=== PATIENT | female | born 1935 | race Caucasian/White ===

== ENCOUNTER → 2016-08-11 | Day surgery (SDC) | payer MEDICARE, BC ==
[~2016-08-11] MED LIST: ALPRAZolam 0.25 MG TAB PO PRN; ASPIRIN 325 MG TAB PO ONE; ASPIRIN 81 MG CHEW PO SCH; CARVEDILOL 12.5 MG TAB PO SCH; CETIRIZINE HCL 10 MG PO SCH; CRANBERRY PO SCH; DONEPEZIL 5 MG TAB PO SCH; FERROUS SULFATE 325 MG TAB PO SCH; FUROSEMIDE 20 MG TAB PO SCH; IOHEXOL 350 MG/ML 125ML BOTTLE INJ ONE; LIDOCAINE 2% INJ 20 MG/ML (20 ML MDV) ONE; LIDOCAINE 2% INJ 20 MG/ML SQ ONE; MAGNESIUM OXIDE PO SCH; MIDAZOLAM 2 MG/2 ML VIAL IV ONE; MIDAZOLAM 2 MG/2 ML VIAL ONE; MULTIVITAMINS, THERA 1 EACH TAB PO SCH; NITROGLYCERIN SL TABS 0.4 MG TAB SUBLINGUAL PRN; NON-FORMULARY DRUG (Alendronate Sodium [Fosamax] 70 MG) PO SCH; NON-FORMULARY DRUG (Calcium Carbonate [Calcium] 600 MG) PO SCH; NON-FORMULARY DRUG (Enalapril 20 MG) PO SCH; RX INFO: IV CONTRAST WAS GIVEN 1 EACH MISC MISCELLANE PRN; SODIUM CHLORIDE 0.9% 1,000 ML IV SCH; SODIUM CHLORIDE 0.9% 1,000 ML in EMPTY BAG 1 BAG IV ONE; amLODIPine 5 MG TAB PO SCH; fentaNYL (PF) 50 MCG/ML 2 ML AMP IV ONE; fentaNYL (PF) 50 MCG/ML 2 ML AMP ONE
[2016-08-11 11:33] VITALS: RESP 18
[2016-08-11 12:03] LABS: Basophils % (A) 1 %; CH 32.5; CHCM 32.1; Eosinophils # (A) 0.2 k/uL (0-0.7); Eosinophils % (A) 3 %; HCT 40.9 % (34.0-46.0); HDW 2.24; HGB 12.9 gm/dL (11.4-16.0); Luc # (Auto) 0.16; Luc % (Auto) 3; Lymphocytes # (A) 1.3 k/uL (1.0-4.8); Lymphocytes % (A) 23 %; MCH 32.2 pg (25.0-35.0); MCHC 31.6 g/dL (31.0-37.0); MCV 101.8 fL (80.0-100.0); Macrocytosis Slight; Mean Platelet Volume 7.5; Monocytes # (A) 0.3 k/uL (0-1.0); Monocytes % (A) 6 %; Neutrophils # (A) 3.6 k/uL (1.3-7.7); Neutrophils % (A) 65 %; RBC 4.01 m/uL (3.80-5.40); RDW 13.5 % (11.5-15.5); WBC 5.6 k/uL (3.8-10.6); WBC (Perox) 5.28
[2016-08-11 12:25] LABS: Anion Gap 12 mmol/L; Blood Urea Nitrogen 25 mg/dL (7-17); Calcium 9.3 mg/dL (8.4-10.2); Carbon Dioxide 23 mmol/L (22-30); Chloride 108 mmol/L (98-107); Glucose 94 mg/dL (74-99); Non-African American GFR(MDRD) 53 (>60 ml/min/1.73 sqM); Potassium 3.9 mmol/L (3.5-5.1); Sodium 143 mmol/L (137-145)
[2016-08-11 17:01] VITALS: BP 116/56; PULSE 68; TEMP 98.2
--- NOTE | 2016-08-12 05:08 | CC ---
DATE OF SERVICE: Mrs. Mccarthy is a 81-year-old female who was referred by Dr. Randall for further evaluation with cardiac catheterization. This patient has a history of cardiomyopathy and PVCs. Patient's recent echocardiogram shows some worsening of the LV systolic function and inferobasal hypokinesia. In view of that, the patient was advised further evaluation with cardiac catheterization to rule out any significant progression in the coronary artery disease. PROCEDURE: The right groin was prepped and draped in the usual manner and the skin was infiltrated with 2% Xylocaine. The right femoral artery was entered using Seldinger technique. A #6 Citizen [place] sheath was placed in. Selective coronary angiography was then performed in multiple projections and the left ventriculography was performed in 30-degree PATTON projection. Patient tolerated the procedure well. HEMODYNAMICS: Left ventricular end-diastolic pressure was 20 mmHg prior to angiography. No gradient was noted across the aortic valve. SELECTIVE CORONARY ANGIOGRAPHY: Left main coronary artery is normal and patent. LAD is a good caliber blood vessel and gives rise to a good-sized diagonal branch. LAD and its branches are normal. Circumflex coronary artery is a large caliber blood vessel, dominant in distribution and gives rise to good-sized obtuse marginal branch and it gives rise to a small-sized PDA and PLV branches. Circumflex coronary artery and its branches are normal. Right coronary artery is small and nondominant. Left ventriculography was performed in the 30-degree PATTON projection that reveals normal left ventricular silhouette with normal left ventricular systolic functions. There is a catheter-induced mitral regurgitation. FINAL IMPRESSION: This study reveals normal coronary arteries. Left ventricular systolic function is normal with ejection fraction of 50% to 55%. RECOMMENDATIONS: Continue medical treatment.
== END ==
LOC: CATHCVL 11:00
PROVIDERS: ATTEND Internal Medicine Cardiovascular Disease
DX: I42.0 Dilated cardiomyopathy (principal); E78.5 Hyperlipidemia, unspecified; I10 Essential (primary) hypertension; Z88.2 Allergy status to sulfonamides; I65.23 Occlusion and stenosis of bilateral carotid arteries; Z79.82 Long term (current) use of aspirin; Z79.899 Other long term (current) drug therapy
CPT/HCPCS: 93458; 80048; 85025; C1760; C1894; C1769; J2001; J2250; J3010; Q9967

== ENCOUNTER → 2016-08-16 | Outpatient (CLI) | payer MEDICARE, BC ==
--- NOTE | 2016-08-16 11:14 | USB ---
Reason for exam: additional evaluation requested from abnormal screening. History: Patient is postmenopausal. Took estrogen for 4 years beginning at age 58. Physical Findings: Nurse did not find any significant physical abnormalities on exam. US Breast LT Left breast ultrasound includes all four quadrants, the retroareolar region and axilla. Finding demonstrate no cystic or solid lesion seen. These results were verbally communicated with the patient and result sheet given to the patient on 08/16/16. ASSESSMENT: Negative, BI-RAD 1 RECOMMENDATION: Routine screening mammogram of both breasts in 3 months. Back on schedule.
== END | disposition home or self-care (01) ==
LOC: RADUSWWP 08:50
PROVIDERS: ATTEND Internal Medicine
DX: R92.8 Other abnormal and inconclusive findings on diagnostic imaging of breast (principal)

== ENCOUNTER → 2017-08-24 | Outpatient (CLI) | payer MEDICARE, BC ==
--- NOTE | 2017-08-24 13:17 | BD ---
EXAMINATION TYPE: Axial Bone Density DATE OF EXAM: 08/24/2017 COMPARISON: 11/05/2013 CLINICAL HISTORY: Osteoporosis screening. Postmenopausal female. Height: 62 IN Weight: 147 LBS FRAX RISK QUESTIONS: History of Fracture in Adulthood: LT RIBS AGE 62 RISK FACTORS HISTORY OF: Active: YES Diet low in dairy products/other sources of calcium: YES Postmenopausal woman: AGE 53 Take estrogen and/or progesterone medications: NOT NOW How long: ESTROGEN AGE 56-60 MEDICATIONS: Osteoporosis Medications: NO Which medication: Fosamax How Lon YEARS. STOPPED LAST MONTH PT HAS A DENTAL PROCEDURE Additional Medications: VIT D , CALCIUM, FUROSEMIDE, DONEPEZIE, ENALAPRIL, CARVEDILOL, SIMVASTATIN, A SPIRIN, CRANBERRY 8400, MULTI VIT EXAM MEASUREMENTS: Bone mineral densitometry was performed using the [employer]zer[employer] System. Bone mineral density as measured about the Lumbar spine is: ----- L1-L4(G/cm2): 1.216 T Score Values are as follows: ----- L2: 0.2 ----- L3: 2.0 ----- L4: 0.0 ----- L1-L4: 0.3 Bone mineral density has: Increased 6.9% since study of: 11/05/2013 Bone mineral density about the R hip (g/cm2): 0.840 Bone mineral density about the L hip (g/cm2): 0.697 T Score values are as follows: -----R Neck: -1.4 -----L Neck: -2.5 -----R Total: -1.6 -----L Total: -1.5 Bone mineral density has: Decreased -0.4% since study of: 11/05/2013 IMPRESSION: Osteopenia (T Score between -2.5 and -1). Values approach osteoporosis with regards to the left femur . There is slightly increased risk of fracture and the patient may be considered for treatment. Re-Screen 2-5 years. NOTE: T-SCORE=SD OF THE YOUNG ADULT MEAN.
--- NOTE | 2017-08-26 10:27 | MM ---
Reason for exam: screening (asymptomatic). Last mammogram was performed 1 year and 9 months ago. History: Patient is postmenopausal. Took estrogen for 4 years beginning at age 58. Physical Findings: A clinical breast exam by your physician is recommended on an annual basis and results should be correlated with mammographic findings. MG 3D Screening Mammo W/Cad Bilateral CC and MLO view(s) were taken. Prior study comparison: November 14, 2015, left breast MG 3d work up w/cad LT. November 10, 2015, bilateral MG 3d screening mammo w/cad. The breast tissue is heterogeneously dense. This may lower the sensitivity of mammography. Benign appearing bilateral calcifications. No suspicious abnormality. No significant changes when compared with prior studies. ASSESSMENT: Benign, BI-RAD 2 RECOMMENDATION: Routine screening mammogram of both breasts in 1 year.
== END | disposition home or self-care (01) ==
LOC: RADMAMWWP 11:25
PROVIDERS: ATTEND Internal Medicine
DX: Z12.31 Encounter for screening mammogram for malignant neoplasm of breast (principal); M89.9 Disorder of bone, unspecified; M85.80 Other specified disorders of bone density and structure, unspecified site
CPT/HCPCS: 77063; 77067; 77080

== ENCOUNTER → 2018-08-28 | Outpatient (CLI) | payer MEDICARE, BC ==
--- NOTE | 2018-08-28 13:56 | MM ---
Reason for exam: screening (asymptomatic). Last mammogram was performed 1 year ago. History: Patient is postmenopausal. Took estrogen for 4 years beginning at age 58. Physical Findings: A clinical breast exam by your physician is recommended on an annual basis and results should be correlated with mammographic findings. MG 3D Screening Mammo W/Cad Bilateral CC and MLO view(s) were taken. Prior study comparison: August 24, 2017, bilateral MG 3d screening mammo w/cad. November 14, 2015, left breast MG 3d work up w/cad LT. The breast tissue is heterogeneously dense. This may lower the sensitivity of mammography. There are benign appearing round vascular calcifications bilaterally. There is no discrete abnormality. ASSESSMENT: Benign, BI-RAD 2 RECOMMENDATION: Routine screening mammogram of both breasts in 1 year.
== END | disposition home or self-care (01) ==
LOC: RADMAMWWP 10:44
PROVIDERS: ATTEND Internal Medicine
DX: Z12.31 Encounter for screening mammogram for malignant neoplasm of breast (principal)
CPT/HCPCS: 77063; 77067

== ENCOUNTER → 2019-08-17 | Outpatient (CLI) | payer MEDICARE, BC ==
--- NOTE | 2019-08-17 18:31 | XR ---
EXAMINATION TYPE: XR chest 2V DATE OF EXAM: 08/17/2019 COMPARISON: None INDICATION: Cough short of breath TECHNIQUE: Frontal and lateral views of the chest are obtained. FINDINGS: The heart size is enlarged. The pulmonary vasculature is upper limits of normal. Mild infiltrate is at the left base.. IMPRESSION: 1. Mild infiltrate left base, likely atelectasis. 2. Cardiomegaly
== END | disposition home or self-care (01) ==
LOC: RADXRMAIN 17:15
PROVIDERS: ATTEND Internal Medicine Clinical Cardiac Electrophysiology
DX: I51.7 Cardiomegaly (principal); I42.0 Dilated cardiomyopathy; R06.02 Shortness of breath; R91.8 Other nonspecific abnormal finding of lung field
CPT/HCPCS: 71046

== ENCOUNTER → 2019-11-02 | Outpatient (CLI) | payer MEDICARE, BC ==
--- NOTE | 2019-11-05 10:18 | MM ---
Reason for exam: screening (asymptomatic). Last mammogram was performed 1 year and 2 months ago. History: Patient is postmenopausal. Took estrogen for 4 years beginning at age 58. Physical Findings: A clinical breast exam by your physician is recommended on an annual basis and results should be correlated with mammographic findings. MG 3D Screening Mammo W/Cad Bilateral CC and MLO view(s) were taken. Prior study comparison: August 28, 2018, bilateral MG 3d screening mammo w/cad. August 24, 2017, bilateral MG 3d screening mammo w/cad. The breast tissue is heterogeneously dense. This may lower the sensitivity of mammography. No significant changes when compared with prior studies. ASSESSMENT: Benign, BI-RAD 2 RECOMMENDATION: Routine screening mammogram of both breasts in 1 year.
== END | disposition home or self-care (01) ==
LOC: RADMAMWWP 10:53
PROVIDERS: ATTEND Internal Medicine
DX: Z12.31 Encounter for screening mammogram for malignant neoplasm of breast (principal)
CPT/HCPCS: 77063; 77067

== ENCOUNTER 2020-09-26 10:03 | Day surgery (SDC) | payer MEDICARE ==
[2020-09-25 09:29] VITALS: BMI 26.5
[~2020-09-26 10:03] MED LIST changes: +ALPRAZolam 0.5 MG TAB PO PRN; -ASPIRIN 325 MG TAB PO ONE; +ASPIRIN 325 MG TAB PO STA; -ASPIRIN 81 MG CHEW PO SCH; +ATORVASTATIN 80 MG TAB PO STA; -CARVEDILOL 12.5 MG TAB PO SCH; -CETIRIZINE HCL 10 MG PO SCH; -CRANBERRY PO SCH; -DONEPEZIL 5 MG TAB PO SCH; -FERROUS SULFATE 325 MG TAB PO SCH; -FUROSEMIDE 20 MG TAB PO SCH; -IOHEXOL 350 MG/ML 125ML BOTTLE INJ ONE; -LIDOCAINE 2% INJ 20 MG/ML (20 ML MDV) ONE; -LIDOCAINE 2% INJ 20 MG/ML SQ ONE; -MAGNESIUM OXIDE PO SCH; -MIDAZOLAM 2 MG/2 ML VIAL IV ONE; -MIDAZOLAM 2 MG/2 ML VIAL ONE; -MULTIVITAMINS, THERA 1 EACH TAB PO SCH; -NON-FORMULARY DRUG (Alendronate Sodium [Fosamax] 70 MG) PO SCH; -NON-FORMULARY DRUG (Calcium Carbonate [Calcium] 600 MG) PO SCH; -NON-FORMULARY DRUG (Enalapril 20 MG) PO SCH; -RX INFO: IV CONTRAST WAS GIVEN 1 EACH MISC MISCELLANE PRN; -SODIUM CHLORIDE 0.9% 1,000 ML IV SCH; -amLODIPine 5 MG TAB PO SCH; -fentaNYL (PF) 50 MCG/ML 2 ML AMP IV ONE; -fentaNYL (PF) 50 MCG/ML 2 ML AMP ONE
[2020-09-26] MEDS ORDERED: SODIUM CHLORIDE 0.9% 1,000 ML IV ONE (10:39)
[2020-09-26 10:47] VITALS: RESP 16; TEMP 97.5
[2020-09-26] MEDS ORDERED: fentaNYL (PF) 50 MCG/ML 2 ML AMP IV ONE (11:55)
[2020-09-26] MEDS ORDERED: MIDAZOLAM 2 MG/2 ML VIAL IV ONE (11:55)
[2020-09-26] MEDS ORDERED: LIDOCAINE 1% INJ 10MG/ML (20 ML MDV) SQ ONE (11:58)
[2020-09-26] MEDS ORDERED: VERAPAMIL SYRINGE (5 MG/10 ML) INTRAARTER ONE (12:03)
[2020-09-26] MEDS ORDERED: IOPAMIDOL-370 125ML BTL INJ ONE (12:16)
[2020-09-26] MEDS ORDERED: RX INFO: IV CONTRAST WAS GIVEN 1 EACH MISC MISCELLANE PRN (12:33)
--- NOTE | 2020-09-26 12:33 | P.CARDCATH ---
Description of Procedure: PROCEDURES PERFORMED: Left heart catheterization, bilateral coronary angiography, left ventriculogram INDICATION: Cardiomyopathy, moderate to severe mitral regurgitation HISTORY: Patient is a pleasant 85 year old female with history of cardiomyopathy which has recently been worsened with EF 20% by last echo with additional moderate to severe mitral regurgitation which has been monitored. Due to worsened cardiomyopathy and moderate to severe MR, left heart cath was recommended. CONSENT:I have discussed the risks, benefits and alternative therapies for the above-mentioned procedure and for both sedation/analgesia as well as necessary blood product administration, if indicated, as they pertain to this patient. The patient has indicated understanding and acceptance of the risks and procedures discussed. PROCEDURE: After the risks, benefits and alternatives of the above mentioned procedure explained in detail with the patient, informed consent was obtained. Patient was taken to the catheterization lab and prepped and draped in usual fashion. 1% lidocaine was used to anesthetize the right radial artery. A 6- [place] sheath was placed in the right radial artery using modified Seldinger technique. Left coronary angiography was performed with a 5-[place] JL 3.5 catheter and right coronary angiography was performed with a 6-[place] AR2 catheter subselectively. A 5-[place] pigtail catheter was inserted into the left ventricle and pressure measurements were obtained. Left ventriculography was performed in the PATTON projection with a power injection. The right radial sheath was removed and a TR band was placed with hemostasis achieved. The patient tolerated the procedure well. Patient was transported back to the post catheterization holding area in stable condition. Conscious Sedation: Patient was monitored under the direct supervision of vision of myself for conscious sedation using Versed and fentanyl for a total duration of 22 minutes HEMODYNAMICS: Ao: 126/67 LV: 124/2, LVEDP 12mmHg SELECTIVE CORONARY ARTERIOGRAPHY: LEFT MAIN: The left main is a large caliber vessel which bifurcates into the LAD and circumflex. There is no significant stenosis. LEFT ANTERIOR DESCENDING CORONARY ARTERY: LAD is a large caliber vessel which wraps around to the apex. There is no significant stenosis. LEFT CIRCUMFLEX CORONARY ARTERY: Left circumflex is a moderate caliber vessel without significant stenosis. It gives off the PDA and is the dominant vessel. RIGHT CORONARY ARTERY: The right coronary artery is a small nondominant artery which gives off an RV branch and has no significant stenosis. LEFT VENTRICULOGRAPHY: Left ventricular ejection fraction is 20% with global hypokinesis. There is 2+ mitral regurgitation and no significant gradient with pullback across the aortic valve. FINAL IMPRESSION: 1. Normal coronary arteries as described above. 2. Nonischemic cardiomyopathy with EF 20% 3. 2+ MR 4. Normal left sided filling pressures PLAN: 1. Aggressive risk factor modification per most recent ACC/AHA guidelines. 2. Follow-up in the office in 1-2 weeks.
[2020-09-26] MEDS ORDERED: SODIUM CHLORIDE 0.9% 1,000 ML IV SCH ×2 (12:45)
[2020-09-26 15:20] VITALS: BP 126/68
[2020-09-26 15:21] VITALS: PULSE 64
== END 2020-09-26 16:07 | disposition home or self-care (01) ==
LOC: CATHCVL 10:03
PROVIDERS: ATTEND Internal Medicine
DX: I42.8 Other cardiomyopathies (principal); I34.0 Nonrheumatic mitral (valve) insufficiency; I11.0 Hypertensive heart disease with heart failure; I50.9 Heart failure, unspecified; E78.5 Hyperlipidemia, unspecified; I49.3 Ventricular premature depolarization; I35.1 Nonrheumatic aortic (valve) insufficiency; I65.23 Occlusion and stenosis of bilateral carotid arteries; Z88.1 Allergy status to other antibiotic agents; Z88.2 Allergy status to sulfonamides; Z79.899 Other long term (current) drug therapy; Z79.82 Long term (current) use of aspirin
CPT/HCPCS: 93458; C1894; C1769; J2250; J2001; J3010; J1644; Q9967

== ENCOUNTER 2021-01-21 09:57 | Emergency (ER) | payer MEDICARE ==
[2021-01-21 10:04] VITALS: TEMP 97.8
--- NOTE | 2021-01-21 10:43 | ED ---
General Adult HPI - General Chief complaint: Shortness of Breath Stated complaint: SOB Time Seen by Provider: 01/21/21 10:07 Source: patient, family Mode of arrival: wheelchair Limitations: no limitations - History of Present Illness Initial comments: Dictation was produced using [employer] dictation software. please excuse any grammatical, word or spelling errors. Chief Complaint: 85-year-old female presents to the emergency department for shortness of breath History of Present Illness: Patient is an 85-year-old female she presents to emergency R for shortness of breath. Patient reports that she has history of heart failure. She does see a flaker tender for this. Patient used to be on Lasix however was taken off by her flaker tender. Patient states patient of breath for the last 2 days. No chest pain. No leg swelling. No abdominal pain. No nausea vomiting. Denies any coughing or runny nose. No obvious exposure to anybody with coronavirus or URI symptoms. The ROS documented in this emergency department record has been reviewed and confirmed by me. Those systems with pertinent positive or negative responses have been documented in the HPI. All other systems are other negative and/or noncontributory. PHYSICAL EXAM: General Impression: Alert and oriented x3, not in acute distress HEENT: Normocephalic atraumatic, extra-ocular movements intact, pupils equal and reactive to light bilaterally, mucous membranes moist. Cardiovascular: Heart regular rate and rhythm Chest: Able to complete full sentences, no retractions, no tachypnea, diffuse lung crackles Abdomen: abdomen soft, non-tender, non-distended, no organomegaly Musculoskeletal: Pulses present and equal in all extremities, no peripheral edema Motor: no focal deficits noted Neurological: CN II-XII grossly intact, no focal motor or sensory deficits noted Skin: Intact with no visualized rashes Psych: Normal affect and mood ED course: 85-year-old female past medical history of heart failure presents with shortness of breath. Eyes upon arrival are within acceptable limits. Patient's well-appearing at bedside not showing signs of respiratory distress patient does have auscultatory findings suggestive of heart failure. Does not have any pitting edema. Laboratory evaluation obtained. CBC, coag panel, metabolic panel is unremarkable. Brain natruretic peptide is 6830. Coronavirus negative. Chest x-ray shows evidence of failure. Patient reevaluated at the bedside at 12:15 PM found to be in stable medical condition. Disposition options were discussed. Patient's symptoms clinically consistent with heart failure exacerbation. Patie nt would prefer to be discharged. Patient given 40 mg of IV Lasix. She will be given 2 days worth of by mouth Lasix. She is advised follow-up with her primary care doctor or flaker tender. Return precautions discussed. EKG interpretation: Ventricular rate 84, normal sinus rhythm, WA interval 184, QRS 104, QTC 482. No WA prolongation, no QTC prolongation, no ST or T-wave changes noted. No old EKG for comparison Overall, this EKG is unremarkable - Related Data Home Medications Medication Instructions Recorded Confirmed Calcium Carbonate [Calcium] 600 mg PO DAILY 08/10/16 09/26/20 Cetirizine HCl 10 mg PO DAILY 08/10/16 09/26/20 Cranberry(Dose Unknown) 1 tab PO DAILY 08/10/16 09/26/20 Donepezil [Aricept] 5 mg PO QAM 08/10/16 09/26/20 Enalapril [Vasotec] 20 mg PO DAILY 08/10/16 09/26/20 Furosemide [Lasix] 20 mg PO DAILY 08/10/16 09/26/20 Multivitamins, Thera [Multivitamin 1 tab PO DAILY 08/10/16 09/26/20 (formulary)] Simvastatin [Zocor] 20 mg PO HS 08/10/16 09/26/20 carvediloL [Coreg] 12.5 mg PO BID 08/10/16 09/26/20 Aspirin [Children's Aspirin] 81 mg PO DAILY 08/11/16 09/26/20 Previous Rx's Medication Instructions Recorded Furosemide [Lasix] 20 mg PO DAILY 2 Days #2 tab 01/21/21 Allergies Allergy/AdvReac Type Severity Reaction Status Date / Time Sulfa (Sulfonamide Allergy Rash/Hives Verified 01/21/21 10:04 Antibiotics) Review of Systems ROS Statement: Those systems with pertinent positive or pertinent negative responses have been documented in the HPI. ROS Other: All systems not noted in ROS Statement are negative. Past Medical History Past Medical History: Heart Failure, Hyperlipidemia, Hypertension, Memory Impa irment Additional Past Medical History / Comment(s): hx CHF, seasonal allergies History of Any Multi-Drug Resistant Organisms: None Reported Past Surgical History: Cardiac Ablation, Heart Catheterization, Tonsillectomy, Tubal Ligation Additional Past Surgical History / Comment(s): partial thyroidectomy, yonas cataracts, surgery for glaucoma Past Anesthesia/Blood Transfusion Reactions: No Reported Reaction Past Psychological History: No Psychological Hx Reported Smoking Status: Never smoker Past Alcohol Use History: None Reported Past Drug Use History: None Reported - Past Family History Father Family Medical History: Cancer General Exam Limitations: no limitations Course Vital Signs 01/21/21 01/21/21 10:00 11:48 Temperature 97.8 F Pulse Rate 90 83 Respiratory 18 16 Rate Blood Pressure 120/80 127/68 O2 Sat by Pulse 98 96 Oximetry Medical Decision Making - Lab Data Result diagrams: 01/21/21 10:15 01/21/21 10:15 Lab Results 01/21/21 01/21/21 01/21/21 Range/Units 10:15 10:15 10:15 WBC 5.7 (3.8-10.6) k/uL RBC 3.66 L (3.80-5.40) m/uL Hgb 12.4 (11.4-16.0) gm/dL Hct 36.8 (34.0-46.0) % MCV 100.4 H (80.0-100.0) fL MCH 33.8 (25.0-35.0) pg MCHC 33.6 (31.0-37.0) g/dL RDW 13.5 (11.5-15.5) % Plt Count 218 (150-450) k/uL MPV 8.7 Neutrophils % 72 % Lymphocytes % 17 % Monocytes % 6 % Eosinophils % 2 % Basophils % 0 % Neutrophils # 4.1 (1.3-7.7) k/uL Lymphocytes # 1.0 (1.0-4.8) k/uL Monocytes # 0.3 (0-1.0) k/uL Eosinophils # 0.1 (0-0.7) k/uL Basophils # 0.0 (0-0.2) k/uL PT 10.9 (9.0-12.0) sec INR 1.0 (<1.2) APTT 24.1 (22.0-30.0) sec Sodium 140 (137-145) mmol/L Potassium 4.1 (3.5-5.1) mmol/L Chloride 110 H (98-107) mmol/L Carbon Dioxide 22 (22-30) mmol/L Anion Gap 8 mmol/L BUN 24 H (7-17) mg/dL Creatinine 0.82 (0.52-1.04) mg/dL Est GFR (CKD-EPI)AfAm 77 (>60 ml/min/1.73 sqM) Est GFR (CKD-EPI)NonAf 66 (>60 ml/min/1.73 sqM) Glucose 112 H (74-99) mg/dL Calcium 9.5 (8.4-10.2) mg/dL NT-Pro-B Natriuret Pep pg/mL Coronavirus (PCR) (Not Detectd) 01/21/21 01/21/21 Range/Units 10:15 10:15 WBC (3.8-10.6) k/uL RBC (3.80-5.40) m/uL Hgb (11.4-16.0) gm/dL Hct (34.0-46.0) % MCV (80.0-100.0) fL MCH (25.0-35.0) pg MCHC (31.0-37.0) g/dL RDW (11.5-15.5) % Plt Count (150-450) k/uL MPV Neutrophils % % Lymphocytes % % Monocytes % % Eosinophils % % Basophils % % Neutrophils # (1.3-7.7) k/uL Lymphocytes # (1.0-4.8) k/uL Monocytes # (0-1.0) k/uL Eosinophils # (0-0.7) k/uL Basophils # (0-0.2) k/uL PT (9.0-12.0) sec INR (<1.2) APTT (22.0-30.0) sec Sodium (137-145) mmol/L Potassium (3.5-5.1) mmol/L Chloride (98-107) mmol/L Carbon Dioxide (22-30) mmol/L Anion Gap mmol/L BUN (7-17) mg/dL Creatinine (0.52-1.04) mg/dL Est GFR (CKD-EPI)AfAm (>60 ml/min/1.73 sqM) Est GFR (CKD-EPI)NonAf (>60 ml/min/1.73 sqM) Glucose (74-99) mg/dL Calcium (8.4-10.2) mg/dL NT-Pro-B Natriuret Pep 6830 pg/mL Coronavirus (PCR) Not Detected (Not Detectd) Disposition Clinical Impression: Heart failure Disposition: HOME SELF-CARE Condition: Fair Instructions (If sedation given, give patient instructions): Heart Failure (ER) Additional Instructions: Take Lasix as instructed. Please follow-up with the flaker tender or primary care doctor. If you start to have worsening symptoms especially with associated chest pain please come to the emergency department for reevaluation. Prescriptions: Furosemide [Lasix] 20 mg PO DAILY 2 Days #2 tab Is patient prescribed a controlled substance at d/c from ED?: No Referrals: Melissa Garcia MD [Primary Care Provider] - 1-2 days
[2021-01-21 10:47] LABS: Basophils % (A) 0 %; Eosinophils # (A) 0.1 k/uL (0-0.7); Eosinophils % (A) 2 %; HCT 36.8 % (34.0-46.0); HGB 12.4 gm/dL (11.4-16.0); Lymphocytes % (A) 17 %; MCH 33.8 pg (25.0-35.0); MCHC 33.6 g/dL (31.0-37.0); MCV 100.4 fL (80.0-100.0); Mean Platelet Volume 8.7; Monocytes # (A) 0.3 k/uL (0-1.0); Monocytes % (A) 6 %; Neutrophils # (A) 4.1 k/uL (1.3-7.7); Neutrophils % (A) 72 %; Platelet Count 218 k/uL (150-450); RBC 3.66 m/uL (3.80-5.40); RDW 13.5 % (11.5-15.5); WBC 5.7 k/uL (3.8-10.6)
[2021-01-21 11:02] LABS: Calcium 9.5 mg/dL (8.4-10.2); Potassium 4.1 mmol/L (3.5-5.1)
[2021-01-21 11:05] LABS: Prothrombin Time 10.9 sec (9.0-12.0)
[2021-01-21 11:06] LABS: Partial Thromboplastin Time 24.1 sec (22.0-30.0)
--- NOTE | 2021-01-21 11:18 | XR ---
Symptoms. EXAMINATION TYPE: XR chest 1V portable DATE OF EXAM: 01/21/2021 Comparison: 08/17/2019 Clinical History: 85 year-old female shortness of breath, dyspnea Findings: Heart borderline enlarged. Diffuse interstitial density. Patchy bibasilar opacities. This small left and trace right pleural effusions. Right paratracheal soft tissue prominence and slight leftward jossy ation of the trachea remains unchanged. Age indeterminate minimally offset right lateral rib fracture deformities. Impression: 1. Right paratracheal soft tissue prominence with some leftward deviation of the trachea remains unch anged. Recommend thyroid ultrasound as an initial assessment for possible goiter. And thyroid ultraso und is negative, contrast-enhanced CT may be indicated after successful treatment of the patient's ac edelmira presentation. 2. Correlate for CHF with pulmonary vascular congestion. Small left and trace right pleural effusions with adjacent atelectasis and/or consolidation. 3. Age indeterminate minimally offset fractures of the right lateral ribs. Clinically correlate.
[2021-01-21] MEDS ORDERED: FUROSEMIDE 10 MG/ML 4 ML VIAL IV STA (12:04)
[2021-01-21 12:35] VITALS: BP 125/78; PULSE 80; RESP 18
== END 2021-01-21 12:34 | disposition home or self-care (01) ==
LOC: EC 09:57
DX: I11.0 Hypertensive heart disease with heart failure (principal); I50.9 Heart failure, unspecified; E78.5 Hyperlipidemia, unspecified; Z20.822 Contact with and (suspected) exposure to COVID-19; Z79.82 Long term (current) use of aspirin; Z88.2 Allergy status to sulfonamides; Z98.51 Tubal ligation status
CPT/HCPCS: 99285; 96374; 36415; 93005; 83880; 80048; 85025; 85610; 85730; 87635; 71045; J1940

== ENCOUNTER 2021-04-06 13:17 | Day surgery (SDC) | payer MEDICARE ==
[~2021-04-06 13:17] MED LIST changes: -ALPRAZolam 0.25 MG TAB PO PRN; -ALPRAZolam 0.5 MG TAB PO PRN; -ASPIRIN 325 MG TAB PO STA; -ATORVASTATIN 80 MG TAB PO STA; -NITROGLYCERIN SL TABS 0.4 MG TAB SUBLINGUAL PRN; +SODIUM CHLORIDE 0.9% 1,000 ML IV SCH; -SODIUM CHLORIDE 0.9% 1,000 ML in EMPTY BAG 1 BAG IV ONE
[2021-04-06 14:16] LABS: Basophils % (A) 1 %; Eosinophils # (A) 0.2 k/uL (0-0.7); Eosinophils % (A) 3 %; HCT 39.4 % (34.0-46.0); HGB 12.9 gm/dL (11.4-16.0); Lymphocytes # (A) 1.4 k/uL (1.0-4.8); Lymphocytes % (A) 20 %; MCH 32.9 pg (25.0-35.0); MCHC 32.8 g/dL (31.0-37.0); MCV 100.3 fL (80.0-100.0); Macrocytosis Slight; Monocytes # (A) 0.5 k/uL (0-1.0); Monocytes % (A) 7 %; Neutrophils # (A) 4.7 k/uL (1.3-7.7); Neutrophils % (A) 66 %; Platelet Count 243 k/uL (150-450); RBC 3.92 m/uL (3.80-5.40); RDW 14.1 % (11.5-15.5); WBC 7.2 k/uL (3.8-10.6)
[2021-04-06 14:36] LABS: Calcium 9.2 mg/dL (8.4-10.2); Potassium 4.1 mmol/L (3.5-5.1)
[2021-04-06] MEDS ORDERED: fentaNYL (PF) 50 MCG/ML 2 ML AMP ONE (16:33)
[2021-04-06] MEDS ORDERED: MIDAZOLAM 2 MG/2 ML VIAL ONE (16:33)
[2021-04-06] MEDS ORDERED: ceFAZolin 1 GM in SODIUM CHLORIDE 0.9% 250 ML IRRIGATION PRN (16:41)
[2021-04-06] MEDS ORDERED: IOPAMIDOL-370 50ML BTL INJ ONE (16:57)
[2021-04-06] MEDS ORDERED: LIDOCAINE 1% INJ 10MG/ML (20 ML MDV) ONE (17:10)
[2021-04-06] MEDS ORDERED: LIDOCAINE 1% INJ 10MG/ML (20 ML MDV) SQ ONE (17:20)
[2021-04-06] MEDS ORDERED: ACETAMINOPHEN IV (For NPO) 1,000 MG in EMPTY BAG 1 BAG IVPB ONE (18:42)
--- NOTE | 2021-04-06 19:06 | P.EPPROC ---
- EP Procedure Note Electrophysiology Procedure Note: Diagnosis Cardiomyopathy, chronic, nonischemic Bradycardia, on guideline directed Congestive heart failure, chronic class III Procedure: Successful Dual-chamber ICD implantation for management of risk of sudden cardiac , with bradycardia Result: Dual chamber ICD implantation, Medtronic EVERA MRI the S4 Atrial lead: Medtronic ICD lead, model #4574, 53 cm in length. Pacing threshold 0.75 V at 0.4 ms, pacing impedance 513 ohms, P waves 2 mV, screwed in right atrial appendage RV ICD lead: Medtronic model number 6935M, 62 cm in length, screwed in RV septum, R waves 16 mV, pacing impedance 475 ohms, pacing threshold 0.5 V at 0.4 ms High-voltage impedance 76 ohms Procedure details: Patient was brought to the EP lab in a fasting state. Written informed consent was obtained prior to the procedure. Options, pros and cons, benefits and risks and complications discussed with patient in detail prior to the procedure (shared decision making). Importance of continuing medical treatment emphasized. Alternatives discussed. Patient would like to proceed with dual-chamber ICD implant. Left upper extremity venogram performed. 15 mL IV dye injected in the left arm. Patent axillary/subclavian vein The left pectoral area was prepped and draped as a protocol. IV antibiotics administered 1% lidocaine was used for local anesthesia. A 4 cm incision was made parallel to the deltopectoral groove, about 1.5 cm medial to it. The incision was carried down to the level of the pectoralis muscle and the subfascial pocket was made. Hemostasis was assured. The axillary vein access was obtained. Appropriately sized into to see sheaths were placed. ICD lead implanted in the right ventricle and screwed in. ICD lead tested for threshold, sensing, impedances and tested with high output pacing for diaphragmatic stimulation Atrial lead placed in the right atrial appendage and tested for threshold, sensing, impedance, and tested with high output pacing. Phrenic nerve stimulation Lead secured to the underlying transverse muscle after removing sheaths . Pocket irrigated with antibiotic solution Leads connected to the biventricular ICD generator. Wound closed in 3 layers and dressed per protocol Dual ICD interrogated and programmed. Appropriate pacing parameters, antitachycardia therapies with antitachycardia pacing cardioversion defibrillations programmed. Patient tolerated the procedure well without any acute complications. See scanned device report in EMR for lead details
[2021-04-06 20:16] VITALS: RESP 16
[2021-04-06] MEDS ORDERED: ATORVASTATIN 10 MG TAB PO SCH (21:00)
[2021-04-06] MEDS: carvediloL 12.5 MG TAB PO SCH (21:20)
[2021-04-06] MEDS: SACUBITRIL/VALSARTAN 24 MG-26 MG TABLET PO SCH (21:21)
--- NOTE | 2021-04-06 21:34 | XR ---
EXAMINATION TYPE: XR chest 1V portable DATE OF EXAM: 04/06/2021 9:10 PM COMPARISON:Multiple radiographs, with the most recent on 01/21/2021 TECHNIQUE: Frontal view of the chest. CLINICAL INDICATION:Female, 86 years old with history of Lead placement check; FINDINGS: Lungs/Pleura: There is no evidence of pleural effusion, focal consolidation, or pneumothorax. Pulmonary vascularity: Unremarkable. Heart/mediastinum: Cardiomediastinal silhouette is enlarged and stable. Two lead cardiac conduction d evice overlying the left hemithorax with lead tips projecting over the heart given patient positionin g these are felt to be in appropriate position. Musculoskeletal:No acute osseous pathology. Other findings: Persistent deviation to the left of the trachea. IMPRESSION: 1. There are conduction leads felt to be in appropriate position given patient positioning. 2. No acute cardiopulmonary disease/process. 3. Similar leftward deviation of the trachea dating back to at least 01/21/2021, likely secondary to thyroid goiter. Consider thyroid ultrasound if not already done since prior.
[2021-04-07] MEDS: ACETAMINOPHEN TAB 325 MG TAB PO PRN ×2 (02:19→08:44)
[2021-04-07] MEDS ORDERED: ceFAZolin 1 GM in SODIUM CHLORIDE 0.9% 250 ML IRRIGATION PRN (07:00)
[2021-04-07 08:26] VITALS: BP 116/55; PULSE 61; TEMP 98
[2021-04-07] MEDS: carvediloL 12.5 MG TAB PO SCH (08:40)
[2021-04-07] MEDS: SACUBITRIL/VALSARTAN 24 MG-26 MG TABLET PO SCH (08:40)
[2021-04-07] MEDS ORDERED: DONEPEZIL 5 MG TAB PO SCH (09:00)
[2021-04-07] MEDS ORDERED: ASPIRIN 81 MG PO SCH (09:00)
[2021-04-07] MEDS ORDERED: SPIRONOLACTONE 25 MG TAB PO SCH (09:00)
[2021-04-07] MEDS ORDERED: IVABRADINE HCL PO SCH (09:00)
--- NOTE | 2021-04-07 10:20 | P.DS ---
Providers Attending physician: Jaime Randall Primary care physician: [facility] Course: INTERVAL HISTORY: The patient is a 86-year-old female with a past medical history of nonischemic cardiomyopathy, congestive heart failure, sick sinus syndrome, admitted to the hospital by Dr. Randall for dual-chamber ICD implantation. Patient seen at bedside, no acute distress. She denies any chest pain or shortness of breath. Device interrogation completed, functionally normally. Site, clean, dry, dressing intact. Patient is currently maintained on aspirin 81 mg daily, atorvastatin 10 mg daily, carvedilol 25 mg twice a day, IV cefazolin, Aricept, Ivabradine 5 mg daily, and Entresto 25 mg26 mg twice a day, spironolactone 25 mg daily PHYSICAL EXAMINATION: Blood pressure 116/55, heart 61, afebrile, oxygen saturation greater than 92% on room air HEART: S1, S2 normal. LUNGS: Clear to auscultation. NECK: Supple. ABDOMEN: Soft. EXTREMITIES: 2+ peripheral pulses. LAB DATA: WBC 7.2, Hgb 12.9, Plt 243, sodium 140, potassium 4.1, BUN 31, serum creatinine 1.3, covid negative FINAL IMPRESSION: 1. Status post dual chamber ICD on 04/06/21 2. Nonischemic cardiomyopathy. 3. Congestive heart failure. 4. Sick sinus syndrome. PLAN: Patient may be able to be discharged home today after last dose of IV antibiotic. Change in medications include increasing carvedilol 25mg BID. Plan to follow up in the device clinic in one week and Dr. Randall in the office. Plan - Discharge Summary New Discharge Prescriptions: New Carvedilol [Coreg] 25 mg PO BID #180 tablet Continue Multivitamins, Thera [Multivitamin (formulary)] 1 tab PO DAILY Donepezil [Aricept] 5 mg PO DAILY Simvastatin [Zocor] 20 mg PO HS Aspirin 81 mg PO DAILY Ivabradine HCl [Corlanor] 5 mg PO DAILY Sacubitril/Valsartan [Entresto 24 mg-26 mg Tablet] 1 tab PO BID Cranberry Fruit Extract [Cranberry] 500 mg PO DAILY Spironolactone 25 mg PO DAILY Discontinued carvediloL [Coreg] 12.5 mg PO BID Discharge Medication List Donepezil [Aricept] 5 mg PO DAILY 08/10/16 [History] Multivitamins, Thera [Multivitamin (formulary)] 1 tab PO DAILY 08/10/16 [History] Simvastatin [Zocor] 20 mg PO HS 08/10/16 [History] Cranberry Fruit Extract [Cranberry] 500 mg PO DAILY 01/21/21 [History] Sacubitril/Valsartan [Entresto 24 mg-26 mg Tablet] 1 tab PO BID 01/21/21 [History] Aspirin 81 mg PO DAILY 04/06/21 [History] Carvedilol [Coreg] 25 mg PO BID #180 tablet 04/06/21 [Rx] Ivabradine HCl [Corlanor] 5 mg PO DAILY 04/06/21 [History] Spironolactone 25 mg PO DAILY 04/06/21 [History] Follow up Appointment(s)/Referral(s): Jaime Randall MD [STAFF PHYSICIAN] - 1 Week (Device clinic follow-up in 1 week Follow-up with Dr. Randall within 3-4 months Carvedilol dose increased to 25 mg twice daily) Activity/Diet/Wound Care/Special Instructions: PATIENT EDUCATION MATERIAL Instructions following a heart rhythm device implant. 1. Keep dressing DRY for 5 DAYS. You may cover the area with Saran or Cling Wrap, prior to a shower. 2. The dressing will be removed in the Device Clinic at [facility]. Absorbable sutures were used to close the wound. 3. Avoid raising the left arm above the shoulder level. 4 week restriction 4. Avoid arm movements, like backscratching, rubbing the head, or pulling on a cord. 4 weeks restriction 5. Gentle range of motion movements of the shoulder, closest to the incision should be performed to avoid a frozen shoulder. (Pendulum exercises of the shoulder) 6. The opposite arm may be used freely. 7. Avoid driving for 7 days. 8. Avoid activities such as golfing, swimming, weed whacking, lifting more than 10 pounds weight, bowling, gymnastics and weight training/lifting. (6 weeks restriction) 9. Activities such as wood chopping with an axe, pull-ups in the gymnasium, power lifting, arc-welding, being close to home induction cooktops will always be a problem. 10. Arm sling is only a reminder not to raise the arm above the head. You do not need to keep the arm completely immobilized. Your free to move the arm and use it and for normal activities. In case of any problems, please call [facility], [place], @ [phone], Attention: Device Clinic Device clinic follow-up in 5 days Follow-up with primary official court interpreter in 2-3 months Carvedilol dose increased to 25 mg twice daily Discharge Disposition: HOME SELF-CARE
== END 2021-04-07 13:40 | disposition home or self-care (01) ==
LOC: CATHEP 13:17 → 6NMEDSUR 18:31 → CATHEP 04-07 13:40
PROVIDERS: ATTEND Internal Medicine Clinical Cardiac Electrophysiology
DX: I42.9 Cardiomyopathy, unspecified (principal); I50.9 Heart failure, unspecified; Z20.822 Contact with and (suspected) exposure to COVID-19
CPT/HCPCS: 92960; 33249; 80048; 85025; 87635; 71045; C1769 ×3; C1892 ×2; C1895; C1898; C1721; J0690 ×2; J2001; Q9967

== ENCOUNTER 2022-03-18 09:32 | Emergency (ER) | payer MEDICARE ==
[2022-03-18 09:43] VITALS: RESP 18
[2022-03-18] MEDS ORDERED: KETOROLAC 15 MG/ML 1 ML VIAL IM STA (10:43)
[2022-03-18] MEDS ORDERED: LIDOCAINE 5% PATCH TOPICAL SCH (10:45)
--- NOTE | 2022-03-18 10:46 | ED ---
General Adult HPI - General Chief complaint: Extremity Problem,Nontraumatic Stated complaint: L hip pain Time Seen by Provider: 03/18/22 10:26 Source: patient, family, RN notes reviewed Mode of arrival: ambulatory Limitations: no limitations - History of Present Illness Initial comments: 87 year old [place] female presents to the emergency department with a chief complaint of left hip pain. She notes she has had this pain for 2 months, however last night she got out from a reclining chair and reports worsening pain since then. She denies recent trauma or previous injury. She has been taking tylenol and motrin without relief. She reports the pain is not there when she is at rest, however there is pain if she tries to bear weight or with movement. She reports a history of arthritis. - Related Data Home Medications Medication Instructions Recorded Confirmed Donepezil [Aricept] 5 mg PO DAILY 08/10/16 04/06/21 Multivitamins, Thera [Multivitamin 1 tab PO DAILY 08/10/16 04/06/21 (formulary)] Simvastatin [Zocor] 20 mg PO HS 08/10/16 04/06/21 Cranberry Fruit Extract [Cranberry] 500 mg PO DAILY 01/21/21 04/06/21 Sacubitril/Valsartan [Entresto 24 1 tab PO BID 01/21/21 04/06/21 mg-26 mg Tablet] Aspirin 81 mg PO DAILY 04/06/21 04/06/21 Ivabradine HCl [Corlanor] 5 mg PO DAILY 04/06/21 04/06/21 Spironolactone 25 mg PO DAILY 04/06/21 04/06/21 Previous Rx's Medication Instructions Recorded carvediloL [Coreg] 25 mg PO BID #180 tablet 04/06/21 Lidocaine 5% Patch [Lidoderm 5% 1 patch TOPICAL DAILY 5 Days #5 03/18/22 Patch] patch Allergies Allergy/AdvReac Type Severity Reaction Status Date / Time Sulfa (Sulfonamide Allergy Rash/Hives Verified 03/18/22 09:43 Antibiotics) Review of Systems ROS Statement: Those systems with pertinent positive or pertinent negative responses have been documented in the HPI. ROS Other: All systems not noted in ROS Statement are negative. Past Medical History Past Medical History: Heart Failure, Hyperlipidemia, Hypertension, Memory Impairment Additional Past Medical History / Comment(s): hx CHF, seasonal allergies History of Any Multi-Drug Resistant Organisms: None Reported Past Surgical History: Cardiac Ablation, Heart Catheterization, Tonsillectomy, Tubal Ligation Additional Past Surgical History / Comment(s): partial thyroidectomy, yonas cataracts, surgery for glaucoma Past Anesthesia/Blood Transfusion Reactions: No Reported Reaction Past Psychological History: No Psychological Hx Reported Smoking Status: Never smoker Past Alcohol Use History: None Reported Past Drug Use History: None Reported - Past Family History Father Family Medical History: Cancer General Exam Limitations: no limitations General appearance: alert, in no apparent distress Head exam: Present: atraumatic, normocephalic, normal inspection Eye exam: Present: normal appearance, PERRL, EOMI. Absent: scleral icterus, conjunctival injection, periorbital swelling ENT exam: Present: normal exam, mucous membranes moist Neck exam: Present: normal inspection. Absent: tenderness, meningismus, lymphadenopathy Respiratory exam: Present: normal lung sounds bilaterally. Absent: respiratory distress, wheezes, rales, rhonchi, stridor Cardiovascular Exam: Present: regular rate, normal rhythm, normal heart sounds. Absent: systolic murmur, diastolic murmur, rubs, gallop, clicks GI/Abdominal exam: Present: soft, normal bowel sounds. Absent: distended, tenderness, guarding, rebound, rigid Extremities exam: Present: normal inspection, full ROM, normal capillary refill. Absent: tenderness, pedal edema, joint swelling, calf tenderness Left Hip exam: Present: tenderness (mild, lateral aspect of L hip ). Absent: full ROM (limited secondary to pain ), swelling, ecchymosis, deformity, crepitus Upper Leg exam: Present: normal inspection, full ROM. Absent: tenderness, swelling Knee exam: Present: normal inspection, full ROM. Absent: tenderness, swelling Lower Leg exam: Present: normal inspection, full ROM. Absent: tenderness Course Vital Signs 03/18/22 09:41 Temperature 98 F Pulse Rate 52 L Respiratory 18 Rate Blood Pressure 123/74 O2 Sat by Pulse 97 Oximetry Medical Decision Making - Medical Decision Making Was pt. sent in by a medical professional or institution? @ -self Did you speak to anyone other than the patient for history? @ patient Did you review nursing and triage notes? @ -Triage notes reviewed Were old charts reviewed? @ -None Differential Diagnosis? @ Strain of L hip, L hip fracture, arthritis of L him EKG interpreted by me (3pts min.)? @ -[none] X-rays interpreted by me (1pt min.)? @ - XR pelvis and L hip negative for acute fracture, with mild arthritic changes to R hip What meds were considered but not given? Why? @ Patient was given toradol and lidoderm patch was applied with symptomatic relief in the ER. Did you discuss the management of the patient with other professionals? @ I discussed the case with Dr. Tapia who agrees with the plan for discharge. Did you reconcile home meds? @ -[none] Was smoking cessation discussed for >3mins.? @ -[none] Was critical care preformed (if so, how long)? @ -[none] Were there social determinants of health that impacted care today? How? (Homelessness, low income, unemployed, alcoholism, drug addiction, transportation, low edu. Level, literacy, decrease access to med. care, assisted, rehab)? @ -[Homelessness, low income, unemployed, alcoholism, drug addiction, transportation, low edu. Level, literacy, decrease access to med. care, assisted, rehab?] Was there de-escalation of care discussed even if they declined? (Discuss DNR or withdrawal of care, Hospice)? @ -[Discuss DNR or withdrawal of care, Hospice?] What co-morbidities impacted this encounter? (DM, HTN, Smoking, COPD, CAD, Cancer, CVA, Hep., AIDS, mental health diagnosis, sleep apnea, morbid obesity)? @ -[DM, HTN, Smoking, COPD, CAD, Cancer, CVA, Hep., AIDS, mental health diagnosis, sleep apnea, morbid obesity?] Was patient admitted / discharged? @ -Patient was discharged in stable condition with recommended follow up with orthopedist in 1-2 days. Undiagnosed new problem with uncertain prognosis? @ -L hip strain Drug Therapy requiring intensive monitoring for toxicity (Heparin, Nitro, Insulin, Cardizem)? @ -[none] Were any procedures done? @ -[none] Diagnosis/symptom? @ -chronic L hip pain Acute, or Chronic, or Acute on Chronic? @ -chronic Uncomplicated (without systemic symptoms) or Complicated (systemic symptoms)? @ -uncomplicated Side effects of treatment? @ -[none] Exacerbation, Progression, or Severe Exacerbation] @ -[no] Poses a threat to life or bodily function? @ -low likelihood Disposition Clinical Impression: Strain of left hip Disposition: HOME SELF-CARE Condition: Stable Additional Instructions: Please return to the emergency department if worsening symptoms of fever or pain Prescriptions: Lidocaine 5% Patch [Lidoderm 5% Patch] 1 patch TOPICAL DAILY 5 Days #5 patch Is patient prescribed a controlled substance at d/c from ED?: No Referrals: Melissa Garcia MD [Primary Care Provider] - 1-2 days Time of Disposition: 11:35
--- NOTE | 2022-03-18 11:02 | XR ---
EXAMINATION TYPE: XR AP view pelvis and 2 views left hip DATE OF EXAM: 03/18/2022 Comparison: None Clinical History: 87-year-old female L hip pain Findings: Mild degenerative change at the SI joints. Pubic symphysis is intact. There is mild degenerative spur ring and mild axial joint space narrowing particularly at the right hip. Relative preservation of hip joint space on the left. No acute fracture, subluxation, dislocation seen. Mild osteopenia. Impression: Mild degenerative change SI joints and mild to moderate degenerative change right hip. No acute osseo us abnormality seen.
[2022-03-18 11:57] VITALS: BP 129/59; PULSE 59; TEMP 97.5
== END 2022-03-18 11:50 | disposition home or self-care (01) ==
LOC: EC 09:32
DX: M70.852 Other soft tissue disorders related to use, overuse and pressure, left thigh (principal); I11.0 Hypertensive heart disease with heart failure; E78.5 Hyperlipidemia, unspecified; Z79.899 Other long term (current) drug therapy; Z79.82 Long term (current) use of aspirin; Z88.2 Allergy status to sulfonamides
CPT/HCPCS: 99283; 73502; 96372; J1885